=== PATIENT | female | born 1970 | race American Indian/Alaskan Native ===

== ENCOUNTER 2021-07-26 10:51 | Emergency (ER) | payer MEDICARE ==
--- NOTE | 2021-07-26 11:52 | Emergency Department Report ---
HPI - General Chief Complaint: Psych Time Seen by Provider: 07/26/21 11:36 - HPI HPI: 50-year-old female with history of CHF and schizophrenia brought in 1013 by police from her retirement due to aggressive and violent behavior as well as threats against other residents. According to the report given by EMS/police, the patient is not been taking her prescribed medications for the last week. She became violent and threatened to cut her housemates throughout as well as damaged property in the home. The patient states "I am supernatural. I cannot explain it.". She also says "other people are after me.". She denies SI or HI to me. She denies hearing voices or seeing things that are not there to me. However, her speech is pressured and nonlinear. She denies any physical symptoms or complaints at this time. ED Past Medical Hx - Past Medical History Previous Medical History?: Yes Hx Hypertension: Yes Hx Psychiatric Treatment: Yes Additional medical history: CHF - Social History Smoking Status: Current Every Day Smoker Substance Use Type: None - Medications Home Medications: Home Medications Medication Instructions Recorded Confirmed Last Taken Type Divalproex Dr [DepaKOTE DR] 250 mg PO BID 30 Days #60 tablet 07/28/21 Unknown Rx Nitrofurantoin [place]/M-Cryst 100 mg PO BID #8 capsule 07/28/21 Unknown Rx [Macrobid CAP] ED Review of Systems ROS: Stated complaint: PSYCH Other details as noted in HPI Constitutional: denies: chills, fever Eyes: denies: eye pain, vision change ENT: denies: throat pain, congestion Respiratory: denies: cough, shortness of breath Cardiovascular: denies: chest pain, syncope Gastrointestinal: denies: abdominal pain, nausea, vomiting Genitourinary: denies: dysuria, frequency Musculoskeletal: denies: back pain, arthralgia Skin: denies: rash, lesions Neurological: denies: headache, weakness, numbness Psychiatric: anxiety. denies: auditory hallucinations, visual hallucinations, homicidal thoughts, suicidal thoughts Physical Exam - Physical Exam Vital Signs: Vital Signs 07/26/21 11:00 Temperature 98.3 F Pulse Rate 88 Respiratory 16 Rate Blood Pressure 138/86 [Left] O2 Sat by Pulse 100 Oximetry Physical Exam: GENERAL: Well developed and well nourished. No acute distress. Desheveled. HEAD: Normocephalic. No obvious signs of trauma. ENT: Moist mucous membranes. EYES: Extraocular movements are intact. Pupils are equal round and reactive to light bilaterally NECK: Supple. Full ROM is intact. Trachea is midline. LUNGS: Nonlabored breathing. Equal chest rise bilaterally. Clear to auscultation bilaterally. CARDIOVASCULAR: Regular rate and rhythm. No murmurs or rubs. VASCULAR: Cap refill < 2 seconds. 1+ pitting edema of the bilateral lower extremities. ABDOMEN: Abdomen is soft and nondistended. There is no significant tenderness, guarding or rebound. SKIN: Skin is warm and dry NEURO: Patient is awake, alert, and oriented. international controller II-XII grossly intact. No focal deficits. Normal motor and sensory exam throughout. Normal speech. MUSCULOSKELETAL: No obvious deformities. No significant tenderness. Normal ROM throughout. BACK/SPINE: No costovertebral angle tenderness. ED Course Vital Signs 07/26/21 11:00 Temperature 98.3 F Pulse Rate 88 Respiratory 16 Rate Blood Pressure 138/86 [Left] O2 Sat by Pulse 100 Oximetry ED Medical Decision Making - Lab Data Result diagrams: 07/26/21 11:56 07/26/21 11:56 Labs 07/26/21 07/26/21 07/26/21 11:56 11:56 11:56 WBC 6.8 RBC 4.42 Hgb 13.8 Hct 41.3 MCV 93 MCH 31 MCHC 33 RDW 12.4 L Plt Count 323 Lymph % (Auto) 19.5 [place] % (Auto) 5.9 Eos % (Auto) 2.6 Baso % (Auto) 0.5 Lymph # (Auto) 1.3 [place] # (Auto) 0.4 Eos # (Auto) 0.2 Baso # (Auto) 0.0 Seg Neutrophils % 71.5 H Seg Neutrophils # 4.8 Sodium 138 Potassium 3.5 L Chloride 101.1 Carbon Dioxide 22 Anion Gap 18 BUN 32 H Creatinine 1.3 H Estimated GFR 52 BUN/Creatinine Ratio 25 Glucose 87 Calcium 9.6 Urine Color Urine Turbidity Urine pH Ur Specific Nerinx Urine Protein Urine Glucose (UA) Urine Ketones Urine Blood Urine Nitrite Urine Bilirubin Urine Urobilinogen Ur Leukocyte Esterase Urine WBC (Auto) Urine RBC (Auto) U Epithel Cells (Auto) Urine Bacteria (Auto) Urine Mucus Ur Yeast w Hyphae Salicylates < 0.3 L Urine Opiates Screen Urine Methadone Screen Acetaminophen Ur Barbiturates Screen Ur Phencyclidine Scrn Ur Amphetamines Screen U Benzodiazepines Scrn Urine Cocaine Screen U Marijuana (THC) Screen Drugs of Abuse Note Plasma/Serum Alcohol 07/26/21 07/26/21 07/26/21 11:56 11:56 16:10 WBC RBC Hgb Hct MCV MCH MCHC RDW Plt Count Lymph % (Auto) [place] % (Auto) Eos % (Auto) Baso % (Auto) Lymph # (Auto) [place] # (Auto) Eos # (Auto) Baso # (Auto) Seg Neutrophils % Seg Neutrophils # Sodium Potassium Chloride Carbon Dioxide Anion Gap BUN Creatinine Estimated GFR BUN/Creatinine Ratio Glucose Calcium Urine Color Yellow Urine Turbidity Clear Urine pH 5.0 Ur Specific Nerinx 1.029 Urine Protein 30 mg/dl Urine Glucose (UA) Neg Urine Ketones 20 Urine Blood Neg Urine Nitrite Neg Urine Bilirubin Neg Urine Urobilinogen 4.0 Ur Leukocyte Esterase Neg Urine WBC (Auto) 12.0 H Urine RBC (Auto) 1.0 U Epithel Cells (Auto) 8.0 Urine Bacteria (Auto) 4+ Urine Mucus 3+ Ur Yeast w Hyphae 2+ Salicylates Urine Opiates Screen Urine Methadone Screen Acetaminophen 5.0 L Ur Barbiturates Screen Ur Phencyclidine Scrn Ur Amphetamines Screen U Benzodiazepines Scrn Urine Cocaine Screen U Marijuana (THC) Screen Drugs of Abuse Note Plasma/Serum Alcohol < 0.01 07/26/21 16:10 WBC RBC Hgb Hct MCV MCH MCHC RDW Plt Count Lymph % (Auto) [place] % (Auto) Eos % (Auto) Baso % (Auto) Lymph # (Auto) [place] # (Auto) Eos # (Auto) Baso # (Auto) Seg Neutrophils % Seg Neutrophils # Sodium Potassium Chloride Carbon Dioxide Anion Gap BUN Creatinine Estimated GFR BUN/Creatinine Ratio Glucose Calcium Urine Color Urine Turbidity Urine pH Ur Specific Nerinx Urine Protein Urine Glucose (UA) Urine Ketones Urine Blood Urine Nitrite Urine Bilirubin Urine Urobilinogen Ur Leukocyte Esterase Urine WBC (Auto) Urine RBC (Auto) U Epithel Cells (Auto) Urine Bacteria (Auto) Urine Mucus Ur Yeast w Hyphae Salicylates Urine Opiates Screen Presumptive negative Urine Methadone Screen Presumptive negative Acetaminophen Ur Barbiturates Screen Presumptive negative Ur Phencyclidine Scrn Presumptive negative Ur Amphetamines Screen Presumptive negative U Benzodiazepines Scrn Presumptive negative Urine Cocaine Screen Presumptive negative U Marijuana (THC) Screen Presumptive negative Drugs of Abuse Note Disclamer Plasma/Serum Alcohol - Medical Decision Making 50-year-old female with history of CHF and psych history apparently not taking meds for the past 1 week brought in 1013 by police due to aggressive/violent behavior and threats against her housemates. Although the patient denies SI/HI or hallucinations, she displays obvious signs of psychosis saying "I am supernatural, I cannot explain it.". She also is paranoid saying "other people are after me." 1013 order has been placed in the chart. She is afebrile with normal vital signs. Physical examination reveals no significant abnormalities. Medical clearance labs have been sent. Labs have resulted and reveal no significant leukocytosis or anemia. Creatinine is mildly elevated at 1.3 from unknown baseline and there are no significant electrolyte abnormalities. Patient will drink plenty of fluids. She is medically cleared for psychiatric evaluation and placement. On 07/28/2021 the patient was seen by the mental health/psychiatry team who recommended discontinuing the 1013 and discharging the patient with new prescriptions and outpatient resources. Patient will be discharged with prescription for Macrobid for her urinary tract infection. Critical care attestation.: If time is entered above; I have spent that time in minutes in the direct care of this critically ill patient, excluding procedure time. ED Disposition Clinical Impression: UTI (urinary tract infection), Bipolar disorder Disposition: 01 HOME / SELF CARE / HOMELESS Is pt being admited?: No Condition: Stable Instructions: [place], Managing Bipolar Disorder, Urinary Tract Infection, Adult, [id number] Additional Instructions: Please follow-up using the following outpatient resources. Return to the emergency department should you develop any new health concerns. Professional and Agency Contacts To help [facility](09/03) [place] Crisis Line: Suicide Prevention Line: Crisis Text Line: Text START to 585741 Emergency: 911 Outpatient [facility] Behavioral Health Resources: KAMILA: [facility] [address] [place], [place] [address] ALESHA: [facility] [address] [place] [address] ALDRICH: [facility] - [address] [place] [address] Thursday thru Thursday - 8am - 5pm JOSH: [facility] Address: [address], [place] [address] MAIKOL: [facility] Address: [address] [place] [address] Thursday thru Thursday- 7am-2pm [facility] Address: [address] [place], [place] Thursday thru Thursday: 8:30A Outpatient -5PM Prescriptions: Divalproex Dr [DepaKOTE DR] 250 mg PO BID 30 Days #60 tablet Nitrofurantoin [place]/M-Cryst [Macrobid CAP] 100 mg PO BID #8 capsule Referrals: PRIMARY CARE, [Primary Care Provider] - 3-5 Days
[2021-07-26 12:19] LABS: Basophils % (Auto) 0.5 % (0.0-1.8); Eosinophils # (Auto) 0.2 K/mm3 (0.0-0.4); Eosinophils % (Auto) 2.6 % (0.0-4.3); Hematocrit 41.3 % (30.3-42.9); Hemoglobin 13.8 gm/dl (10.1-14.3); Lymphocytes # (Auto) 1.3 K/mm3 (1.2-5.4); Lymphocytes % (Auto) 19.5 % (13.4-35.0); Mean Corpuscular HGB Conc 33 % (30-34); Mean Corpuscular Volume 93 fl (79-97); Monocytes # (Auto) 0.4 K/mm3 (0.0-0.8); Monocytes % (Auto) 5.9 % (0.0-7.3); Platelet Count 323 K/mm3 (140-440); Red Blood Count 4.42 M/mm3 (3.65-5.03); Red Cell Distribution Width 12.4 % (13.2-15.2)
[2021-07-26 12:29] LABS: Calcium 9.6 mg/dL (8.4-10.2)
[2021-07-26 16:51] LABS: Amphetamine Screen,Urine PRESUMPTIVE NEGATIVE; Benzodiazepines Screen,Urine PRESUMPTIVE NEGATIVE; Cannabinoid Screen,Urine PRESUMPTIVE NEGATIVE; Cocaine Screen,Urine PRESUMPTIVE NEGATIVE; Methadone Screen,Urine PRESUMPTIVE NEGATIVE; Opiate Screen,Urine PRESUMPTIVE NEGATIVE
[2021-07-26 16:55] LABS: Bacteria,Urine 4+ /HPF (Negative); Bilirubin,Urine NEG (Negative); Blood,Urine NEG (Negative); Color,Urine Yellow (Yellow); Mucus,Urine 3+ /HPF
[2021-07-26] MEDS ORDERED: cephALEXin 500 MG CAP PO SCH (22:00)
[2021-07-26] MEDS: NITROFURANTOIN MONOHYD/M-CRYST 100 MG CAP PO SCH (23:47)
[2021-07-27] MEDS ORDERED: diphenhydrAMINE 25 MG CAP PO ONE (09:46)
[2021-07-27] MEDS: NITROFURANTOIN MONOHYD/M-CRYST 100 MG CAP PO SCH ×2 (09:48→22:55)
--- NOTE | 2021-07-27 11:16 | Consultation ---
History of Present Illness - Reason for Consult Consult date: 07/27/21 Reason for consult: Mental health evaluation - History of Present Psychiatric Illness ED Note: 50-year-old female with history of CHF and schizophrenia brought in 1013 by police from her [place] [facility] due to aggressive and violent behavior as well as threats against other residents. According to the report given by EMS/police, the patient is not been taking her prescribed medications for the last week. She became violent and threatened to cut her housemates throughout as well as damaged property in the home. The patient states "I am supernatural. I cannot explain it.". She also says "other people are after me.". She denies SI or HI to me. She denies hearing voices or seeing things that are not there to me. However, her speech is pressured and nonlinear. She denies any physical symptoms or complaints at this time. Sabine Gray is a 50 year old female with history of schizophrenia and Bipolar disorder. The patient is irritable and did not want to engage in assessment stating, " they asked these questions yesterday." The patient states that they thought she was not taking her medications and called the ambulance. She presents with pressured speech and loud tone. She denies any current suicidal/homicidal ideation and denies hallucinations. Psych History Diagnoses: Bipolar, schizophrenia Suicide attempts or Self-harm behavior:Yes Prior psychiatric hospitalizations: Yes- multiple Substance Abuse history:Marijuana, alcohol, cocaine Previous psychiatric medications tried:Unable to recall Outpatient treatment: Unknown PAST MEDICAL HISTORY: none reported Family Psychiatric History: None reported or documented SOCIAL HISTORY Marital Status: Single Living Arrangements: transitional home Employment Status:unemployed/ SSI Access to guns/weapons: Denies Education: 2 year college History of Abuse: Denies Legal History: None reported REVIEW OF SYSTEMS Constitutional: Negative for weight loss ENT: Negative for stridor Respiratory: Negative for cough or hemoptysis All other systems reviewed and are negative MENTAL STATUS EXAMINATION General Appearance and Behavior: Age appropriate, good hygiene, wearing appropriate clothes, sleeping, cooperative Cooperation: cooperative Psychomotor Behavior: unremarkable and within normal limits Mood:" Irritable" Affect and affective range: congruent with mood Thought Process:constricted Thought Content: Grandiose Speech:pressured, loud Suicidal Ideation: Denies Homicidal Ideation:Denies Hallucinations: Denies Delusions: None elicited Impulse Control: Questionable Insight and Judgment: Limited insight and poor judgment, Memory: Normal, Attention: Normal Orientation: Alert, oriented Assessment and Plan (1)Bipolar disorder Treatment plan Continue 1013 Depakote 250mg po BID Risks, benefits and alternatives of medications discussed with the patient, questions answered and consent obtained from patient. PSYCHOTHERAPY: Supportive psychotherapy provided MEDICAL: Per primary team DELIRIUM PRECAUTIONS: Please re-orient patient frequently, keep lights on during the day, and minimize benzodiazepines and opiates as these medications could worsen patient's confusion. FARMWORKER CRANBERRY: Defer to primary Disposition: Recommend acute psychiatric inpatient treatment. Will follow. Thank you for the consult. Please contact with any questions and/or concerns. Case staffed with Dr. Wayne Medications and Allergies Medications and Allergies Allergies Allergy/AdvReac Type Severity Reaction Status Date / Time Penicillins Allergy Unknown Shortness Verified 07/26/21 21:42 of Breath olanzapine [From Zyprexa] Allergy Unknown Verified 07/26/21 21:42 Active Meds: Active Medications Nitrofurantoin Macrocrystals (Nitrofurantoin Monohyd/M-Cryst 100 Mg Cap) 100 mg PO BID ZAY Stop: 07/31/21 10:01 Last Admin: 07/27/21 09:48 Dose: 100 mg Documented by: Mental Status Exam - Vital signs Last Vital Signs Temp 98.8 F 07/26/21 23:48 Pulse 74 07/26/21 23:48 Resp 18 07/27/21 08:24 BP 112/54 07/26/21 23:48 Pulse Ox 98 07/27/21 08:24 Results Result Diagrams: 07/26/21 11:56 07/26/21 11:56 Abnormal lab results 07/26/21 07/26/21 07/26/21 Range/Units 11:56 11:56 11:56 RDW 12.4 L (13.2-15.2) % Seg Neutrophils % 71.5 H (40.0-70.0) % Potassium 3.5 L (3.6-5.0) mmol/L BUN 32 H (7-17) mg/dL Creatinine 1.3 H (0.6-1.2) mg/dL Urine WBC (Auto) (0.0-6.0) /HPF Salicylates < 0.3 L (2.8-20.0) mg/dL Acetaminophen (10.0-30.0) ug/mL 07/26/21 07/26/21 Range/Units 11:56 16:10 RDW (13.2-15.2) % Seg Neutrophils % (40.0-70.0) % Potassium (3.6-5.0) mmol/L BUN (7-17) mg/dL Creatinine (0.6-1.2) mg/dL Urine WBC (Auto) 12.0 H (0.0-6.0) /HPF Salicylates (2.8-20.0) mg/dL Acetaminophen 5.0 L (10.0-30.0) ug/mL All other labs normal.
--- NOTE | 2021-07-27 11:17 | Event Note ---
Date: 07/27/21 50-year-old female here with acute psychosis. She has been medically clear for psychiatric evaluation and placement. She has been diagnosed with a UTI for which she is taking antibiotics. Vital signs reviewed and are stable. There were no acute events overnight. Currently awaiting inpatient psychiatric placement
[2021-07-27] MEDS: DIVALPROEX DR 250 MG TAB PO SCH ×2 (14:07→22:55)
--- NOTE | 2021-07-28 10:34 | Progress Note ---
Subjective - Reason for Consult Consult date: 07/28/21 Reason for consult: Mental health evaluation - Chief Complaint Chief complaint: The patient is seen this morning, she reports doing well. She reports sleep and appetite as good. The patient denies any current suicidal/homicidal ideation and denies hallucinations. No aggressive behaviors reported. REVIEW OF SYSTEMS Constitutional: Negative for weight loss ENT: Negative for stridor Respiratory: Negative for cough or hemoptysis All other systems reviewed and are negative MENTAL STATUS EXAMINATION General Appearance and Behavior: Age appropriate, good hygiene, wearing appropriate clothes, sleeping, cooperative Cooperation: cooperative Psychomotor Behavior: unremarkable and within normal limits Mood:" good" Affect and affective range: congruent with mood Thought Process:Goal directed Thought Content: Reality oriented Speech:Normal Suicidal Ideation: Denies Homicidal Ideation:Denies Hallucinations: Denies Delusions: None elicited Impulse Control: Questionable Insight and Judgment: Limited insight andgoodjudgment, Memory: Normal, Attention: Normal Orientation: Alert, oriented Assessment and Plan (1)Bipolar disorder Treatment plan Discontinue 1013 Depakote 250mg po BID Risks, benefits and alternatives of medications discussed with the patient, questions answered and consent obtained from patient. PSYCHOTHERAPY: Supportive psychotherapy provided MEDICAL: Per primary team DELIRIUM PRECAUTIONS: Please re-orient patient frequently, keep lights on during the day, and minimize benzodiazepines and opiates as these medications could worsen patient's confusion. WIND FARM SUPPORT SPECIALIST: Defer to primary Disposition: Do not recommend acute psychiatric inpatient treatment. Engine Emission Technician will provide patient with outpatient resources. Will sign off. Please contact with any questions and/or concerns. Case staffed with Dr. Wayne Medications and Allergies Mental Status Exam - Vital signs Last Vital Signs Temp 98.3 F 07/27/21 20:13 Pulse 68 07/27/21 20:13 Resp 17 07/28/21 05:56 BP 129/66 07/27/21 20:13 Pulse Ox 96 07/28/21 05:56
[2021-07-28 12:54] VITALS: BP 147/78
== END 2021-07-28 14:26 | disposition home or self-care (01) ==
LOC: ED 10:51
DX: N39.0 Urinary tract infection, site not specified (principal); F31.9 Bipolar disorder, unspecified; Z20.822 Contact with and (suspected) exposure to COVID-19; F17.200 Nicotine dependence, unspecified, uncomplicated; I10 Essential (primary) hypertension; Z79.899 Other long term (current) drug therapy
CPT/HCPCS: 36415; 80048; 80307; 81001; 85025; 87076; 87086; 87186; 99284; U0003; 80320; G0480